=== PATIENT | female | born 1990 | race Hispanic/Latino ===

== ENCOUNTER 2016-12-08 17:44 | Emergency (ER) | payer OTHER ==
[~2016-12-08] VITALS: Ht 152.4 cm; Wt 97.5 kg
[~2016-12-08 17:44] MED LIST: CYCLOBENZAPRINE10 M1 PO; IBUPROFEN600 M1 PO; LEVAQUIN500 MG PO; LIORESAL 10MG T10 MG PO; LYSTEDA650 MG PO; MEDROL DOSEPAK1 PAC PO; MIRALAX17 GM PO; MOTRIN 600 MG600 MG PO; NOVAPLUS V0.09 MG/Ac INH; NUVARING1 ICR VG; PRENATAL1 TA2 PO; ROBITUSSIN W/CO10 ML PO; TESSALON PERLE100 MG PO; TRAMADOL50 MG PO
[2016-12-08 17:51] VITALS: BP 118/72
[2016-12-08 18:29] LABS: ABSOLUTE BASOPHIL COUNT 0 /CUMM (0.0-0.2); ABSOLUTE EOSINOPHIL COUNT 0.2 /CUMM (0.0-0.7); ABSOLUTE GRANULOCYTE CT 8.9 /CUMM (1.4-6.5); ABSOLUTE LYMPH COUNT 1.1 /CUMM (1.2-3.4); ABSOLUTE MONOCYTE COUNT 0.7 /CUMM (0.10-0.60); BASOPHIL % 0.3 % (0.0-2.0); GRANULOCYTE % 81.5 % (42.2-75.2); MEAN CORPUSCULAR HGB 31.2 PG (27.0-31.0); MEAN CORPUSCULAR HGB CONC 33.6 G/DL (33.0-37.0); MEAN CORPUSCULAR VOLUME 92.9 FL (81.0-99.0); MEAN PLATELET VOLUME 7.4 FL (7.4-10.4); PLATELET COUNT 321 /CUMM (130-400); RBC DISTRIBUTION WIDTH 13.8 % (11.5-14.5); RED BLOOD CELL CT 4.41 /CUMM (4.20-5.40); WHITE BLOOD CELL COUNT 10.9 /CUMM (4.8-10.8)
--- NOTE | 2016-12-08 18:34 | ED INFLUENZA/URI COMPLAINT ---
History of Present Illness General Chief Complaint: General Adult Stated Complaint: CHILLS, BODY ACHES Source: patient, old records Exam Limitations: no limitations Vital Signs & Intake/Output Vital Signs & Intake/Output ED Intake and Output 12/09 0000 12/08 1200 Intake Total Output Total Balance Patient 215 lb Weight Weight Reported by Patient Measurement Method Triage Note: PT TO ED FOR C/C OF WAKING UP WITH CHILLS, ACHING ALL OVER BODY. PT DOES HAVE ROGEL WITH MINIMAL BLURRY VISION. DENIES ABD PAIN, N, V, COUGH, SORE THROAT. PT TOOK MOTRIN AT HOME WITHOUT RELIEF. Triage Nurses Notes Reviewed? yes Onset: Abrupt Duration: day(s): (1), constant Timing: recent history Severity: mild, moderate Severity Numbers: 5 No Modifying Factors: none Associated Symptoms: muscle aches : No Patient currently breastfeeds: No HPI: 26-year-old female with no medical history presents to ER for evaluation complaining of generalized bodyaches, headache chills since this morning. No sick contacts no recent travel. She denies fever rhinorrhea congestion and ear pain sore throat chest pain abdominal pain nausea vomiting diarrhea. No urinary complaints no modifying factors or associated symptoms. She took Motrin earlier today without improvement in the (NEDA LACKEY,GINGER) Allergies Coded Allergies: milk (ABD PAIN/DISCOMFORT 12/09/16) Reconcile Medications Albuterol Sulfate (Proventil Hfa) 90 MCG HFA.AER.AD 2 PUF INH Q4 PRN wheezing Ergocalciferol (Vitamin D2) (Vitamin D2) 50,000 UNIT CAPSULE 1 CAP PO QTHURS SUPPLEMENT (Reported) Ibuprofen 600 MG TABLET 1 TAB PO TID PRN fever with food Ibuprofen 600 MG TABLET 1 TAB PO TID PRN PAIN with food (ARON GARCÍA,YENNIFER Cruz) Past History Travel History Traveled to [place] past 21 day No Medical History Any Pertinent Medical History? 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 No (GINGER GARCIA) Review of Systems Review of Systems Constitutional: Reports: see HPI. All Other Systems: Reviewed and Negative Comments Review of systems: See HPI, All other systems negative. Constitutional, chills fever, no malaise HEENT: No visual changes no sore throat no congestion, no ear pain Cardiovascular: No chest pain , no palpitation , Skin: no rashes, no change in skin Respiratory: No dyspnea no cough no sputum no hemoptysis GI: No nausea no vomiting, no diarrhea, no bloating/constipation : No dysuria No hematuria, no frequency, no discharge Muscle skeletal: No joint pain, no joint swelling, no back pain, no neck pain, Neurologic: No numbness no confusion, no headache Psych: No stress no depression,. Heme/endocrine: No bruising no bleeding Immunology: No lymphadenopathy (GINGER GARCIA) Physical Exam Physical Exam General Appearance: well developed/nourished, alert, awake Ears, Nose, Throat: normal ENT inspection Comments: Well-developed well-nourished patient in no apparent distress. Head/Face: Atraumatic, no maxillary/frontal sinus tenderness, no facial swelling Eyes: PERRL, EOMI, no conjunctival injection. No nystagmus Ear:External auditory canal and Tympanic membranes clear, no erythema, no FB. Nose: atraumatic.Normal inspection: No bleeding, no septal hematoma Throat: Moist mucous membranes.Pharynx normal. No pharyngeal erythema/exudate seen. No stridor/drooling or assymetry. No swelling or edema. Neck: Supple, no lymphadenopathy, FROM Back: FROM Cardiovascular: Regular rate and rhythms no murmurs rubs or gallops, Respiratory: Chest nontender.There were no bony deformities, no asymmetry. No respiratory distress. Patient speaking in full complete sentences. Breath sounds clear to auscultation bilaterally: NO W/R/R Extremities: full range of motion Neuro: awake, alert, and oriented to person, place and time. There were no obvious focal neurologic abnormalities. Skin: Warm & dry;No appreciable rash on exposed skin Psych: Mood affect normal, normal memory normal judgment. Core Measures Severe Sepsis Present: No Septic Shock Present: No (GINGER GARCIA) Progress Differential Diagnosis: influenza, otitis, pneumonia, pharyngitis, sinusitis, uti,pna, bronchitis Plan of Care: Orders Procedure Date/time Status URINE 12/08 1756 Complete URINALYSIS 12/08 1756 Complete COMPREHENSIVE METABOLIC PANEL 12/08 1756 Complete CBC WITHOUT DIFFERENTIAL 12/08 1756 Complete Laboratory Tests 12/08/161809: Urinalysis LIGHT H, Urine Color YEL, Urine Clarity HAZY H, Urine pH 6.0, Ur Specific [place] 1.025, Urine Protein TRACE H, Urine Ketones NEG, Urine Nitrite NEG, Urine Bilirubin NEG, Urine Urobilinogen 0.2, Ur Leukocyte Esterase TRACE H , Ur Microscopic SEDIMENT EXAMINED, Urine RBC 1-3, Urine WBC 3-5 H, Ur Epithelial Cells MANY H, Urine Bacteria MOD H, Urine Mucus MOD H, Urine Hemoglobin LARGE H, Urine Glucose NEG, Urine Test NEGATIVE 12/08/161804: Anion Gap 9, Estimated GFR > 60, BUN/Creatinine Ratio 17.5, Glucose 86, Calcium 8.7, Total Bilirubin 0.5, AST 18, ALT 35, Alkaline Phosphatase 86, Total Protein 6.5, Albumin 3.8, Globulin 2.7, Albumin/Globulin Ratio 1.4, CBC w Diff NO MAN DIFF REQ, RBC 4.41, MCV 92.9, MCH 31.2 H, RDW 13.8, MPV 7.4, Gran % 81.5 H, Lymphocytes % 9.8 L, Monocytes % 6.4, Eosinophils % 2.0, Basophils % 0.3, Absolute Granulocytes 8.9 H, Absolute Lymphocytes 1.1 L, Absolute Monocytes 0.7 H, Absolute Eosinophils 0.2, Absolute Basophils 0, PUBS MCHC 33.6 Patient clinically appears well and nontoxic appearing afebrile discussed with the plan of care I discussed with the patient at length all of their results. I had an extensive conversation regarding need for close follow up with their primary care physician this week as well as return precautions. I answered all of their questions, they feel comfortable with the plan and follow-up care. (GINGER GARCIA) Initial ED EKG: none (GINGER GARCIA) Departure Departure Time of Disposition: 1899 Disposition: HOME OR SELF CARE Condition: Stable Clinical Impression Primary Impression: Viral syndrome Referrals: UNKNOWN (PCP) Additional Instructions: Tylenol or Motrin every 4-6 hours and plenty of fluids rest follow-up with your primary care physician this week. Return to ER anytime sooner with any concerns. Departure Forms: Customer Survey General Discharge Information (NEDA LACKEY,GINGER) PA/LENS POLISHER Co-Sign Statement Statement: ED Attending supervision documentation- [] I saw and evaluated the patient. I have also reviewed all the pertinent lab results and diagnostic results. I agree with the findings and the plan of care as documented in the PA's/LENS POLISHER's documentation. [X] I have reviewed the ED Record and agree with the PA's/LENS POLISHER's documentation. [] Additions or exceptions (if any) to the PAs/LENS POLISHER's note and plan are summarized below: [] (ARON GARCÍA,YENNIFER Cruz)
[2016-12-08] MEDS ORDERED: VITAMIN D250000 UNIT PO (18:40)
[2016-12-09] MEDS ORDERED: PROVENTIL HFA6.7 GM INH (18:41)
[2016-12-09] MEDS ORDERED: IBUPROFEN600 M1 PO (18:41)
== END 2016-12-08 19:11 ==
LOC: ERH 17:44
PROVIDERS: Emergency Medicine
DX: B34.9 Viral infection, unspecified (principal)
CPT/HCPCS: 81001; 81025

== ENCOUNTER 2016-12-09 13:49 | Emergency (ER) | payer OTHER ==
[~2016-12-09 13:49] MED LIST changes: +VITAMIN D250000 UNIT PO
[2016-12-09 14:21] VITALS: BP 106/71
[2016-12-09 15:01] LABS: ABSOLUTE BASOPHIL COUNT 0 /CUMM (0.0-0.2); ABSOLUTE EOSINOPHIL COUNT 0 /CUMM (0.0-0.7); ABSOLUTE GRANULOCYTE CT 8.8 /CUMM (1.4-6.5); ABSOLUTE LYMPH COUNT 0.8 /CUMM (1.2-3.4); ABSOLUTE MONOCYTE COUNT 0.7 /CUMM (0.10-0.60); BASOPHIL % 0 % (0.0-2.0); EOSINOPHIL % 0.2 % (0-5); GRANULOCYTE % 85.6 % (42.2-75.2); HEMATOCRIT 41.9 % (37-47); MEAN CORPUSCULAR HGB 31.3 PG (27.0-31.0); MEAN CORPUSCULAR HGB CONC 33.6 G/DL (33.0-37.0); MEAN CORPUSCULAR VOLUME 93.2 FL (81.0-99.0); MEAN PLATELET VOLUME 7.4 FL (7.4-10.4); PLATELET COUNT 322 /CUMM (130-400); RBC DISTRIBUTION WIDTH 13.9 % (11.5-14.5); WHITE BLOOD CELL COUNT 10.3 /CUMM (4.8-10.8)
--- NOTE | 2016-12-09 16:58 | ED GENERAL ADULT ---
History of Present Illness General Chief Complaint: General Adult Stated Complaint: HERE YEST WITH VIRUS, FELLS WORSE TODAY Source: patient Exam Limitations: no limitations Vital Signs & Intake/Output Vital Signs & Intake/Output Vital Signs Date Time Temp Pulse Resp B/P B/P Pulse O2 O2 Flow FiO2 Mean Ox Delivery Rate 12/09 1710 98.9 12/09 1710 96 12/09 1709 98.9 12/09 1700 97 12/09 1427 101.5 12/09 1421 101.5 134 16 106/71 98 Room Air Room Air Allergies Coded Allergies: milk (ABD PAIN/DISCOMFORT 12/09/16) Triage Note: PT TO TRIAGE WITYH FEVERS, MUSCLES ACHES AND TIREDNESS FOR 2 DAYS. PT WAS DIAGNOSED WITH VIRAL SYNDROME LAST NIGHT AND D/C. Triage Nurses Notes Reviewed? yes : No Patient currently breastfeeds: No HPI: 26-year-old female with history of asthma presenting with fevers (Tmax 101F), myalgias, malaise since yesterday. Denies URI, cough, sputum, abdominal pain, nausea, vomiting, diarrhea, dysuria, vaginal discharge. Was seen in the ED yesterday with negative workup and diagnosed with viral syndrome. Instructed to use ibuprofen as needed for fevers and myalgias, and to maintain adequate fluid intake. Patient reports fever returns within 3 hours after taking ibuprofen. Also states she has been unable to drink with fluids due to decreased by mouth intake. (PATI BOYKIN,WAYNE) Reconcile Medications Albuterol Sulfate (Proventil Hfa) 90 MCG HFA.AER.AD 2 PUF INH Q4 PRN wheezing Ergocalciferol (Vitamin D2) (Vitamin D2) 50,000 UNIT CAPSULE 1 CAP PO QTHURS SUPPLEMENT (Reported) Ibuprofen 600 MG TABLET 1 TAB PO TID PRN fever with food Ibuprofen 600 MG TABLET 1 TAB PO TID PRN PAIN with food (BLANCA GARCÍA,HERLINDA) Past History Travel History Traveled to [place] past 21 day No Medical History Any Pertinent Medical History? 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 No (PATI BOYKIN,WAYNE) Review of Systems Review of Systems Constitutional: Reports: chills, fever, malaise. Denies: weakness. EENTM: Denies: ear pain, nasal congestion, throat pain. Respiratory: Reports: wheezing. Denies: cough, sputum production. Cardiovascular: Denies: chest pain, palpitations. GI: Denies: abdominal pain, diarrhea, nausea, vomiting. Genitourinary: Denies: discharge, dysuria. Musculoskeletal: Reports: muscle pain. Denies: joint pain. Skin: Denies: rash. (PATI BOYKIN,WAYNE) Physical Exam Physical Exam General Appearance: well developed/nourished, no apparent distress, comfortable Head: atraumatic Ears, Nose, Throat: normal ENT inspection Neck: normal inspection, supple, no LAD Respiratory: diffsue wheezes bilaterally throughout all lung ramirez. Cardiovascular: regular rate/rhythm Gastrointestinal: soft, non-tender Skin: intact Core Measures ACS in differential dx? No CVA/TIA Diagnosis: No Severe Sepsis Present: No Septic Shock Present: No (PATI BOYKIN,WAYNE) Progress Differential Diagnoses I considered the following diagnoses in my evaluation of the patient: [Viral syndrome versus pneumonia versus UTI versus fever of unknown origin] Plan of Care: Orders Procedure Date/time Status URINE 12/09 143 Complete URINALYSIS 12/09 143 Complete COMPREHENSIVE METABOLIC PANEL 12/09 143 Complete CBC WITHOUT DIFFERENTIAL 12/09 143 Complete Laboratory Tests 12/09/16 1457: Urine Color YEL, Urine Clarity HAZY H, Urine pH 6.5, Ur Specific [place] 1.020, Urine Protein TRACE H, Urine Ketones NEG, Urine Nitrite NEG, Urine Bilirubin NEG, Urine Urobilinogen 0.2, Ur Leukocyte Esterase NEG, Ur Microscopic SEDIMENT EXAMINED, Urine RBC 1-3, Urine WBC 1-3 H, Ur Epithelial Cells MOD H, Urine Bacteria FEW H, Urine Mucus FEW, Urine Hemoglobin SMALL H, Urine Glucose NEG, Urine Test NEGATIVE 12/09/16 1434: Anion Gap 10, Estimated GFR > 60, BUN/Creatinine Ratio 15.0, Glucose 105 H, Calcium 8.8, Total Bilirubin 0.4, AST 17, ALT 32, Alkaline Phosphatase 76, Total Protein 6.3, Albumin 3.5, Globulin 2.8, Albumin/Globulin Ratio 1.3, CBC w Diff MAN DIFF ORDERED, RBC 4.50, MCV 93.2, MCH 31.3 H, RDW 13.9, MPV 7.4, Gran % 85.6 H, Lymphocytes % 7.8 L, Monocytes % 6.4, Eosinophils % 0.2, Basophils % 0 L, Absolute Granulocytes 8.8 H, Segmented Neutrophils 79 H, Band Neutrophils 5, Absolute Lymphocytes 0.8 L, Lymphocytes 6 L, Monocytes 9, Absolute Monocytes 0.7 H, Eosinophils 1, Absolute Eosinophils 0, Absolute Basophils 0, Platelet Estimate VERIFIED BY SMEAR, Normocytic RBCs VERIFIED, Normochromic RBCs VERIFIED, PUBS MCHC 33.6 Labs and urine unremarkable. Chest x-ray negative for pneumonia. Wheezing resolved after albuterol nebs. Afebrile after ibuprofen. Will discharge home with education on symptomatic care, Motrin for fevers, fluid hydration, and prescription for albuterol inhaler as needed for wheezing. (PATI BOYKIN,WAYNE) Initial ED EKG: none (WAYNE KRUEGER PA-C) Departure Departure Disposition: HOME OR SELF CARE Condition: Stable Clinical Impression Primary Impression: Fever Secondary Impressions: Myalgia Referrals: UNKNOWN (PCP) Additional Instructions: Use albuterol inhaler every 4-6 hours as needed for wheezing. Use ibuprofen as needed for fevers and muscle aches. Maintain adequate fluid intake. Follow-up with your primary care provider in the next 2 days for reevaluation. Return to the ED for any new or worsening symptoms. Departure Forms: Customer Survey General Discharge Information (WAYNE KRUEGER PA-C) Departure Prescriptions: Current Visit Scripts Albuterol Sulfate (Proventil Hfa) 2 PUF INH Q4 PRN wheezing #1 INHAL Ibuprofen 1 TAB PO TID PRN fever #30 TAB with food PA/GOLF COURSE SUPERINTENDENT Co-Sign Statement Statement: ED Attending supervision documentation- [] I saw and evaluated the patient. I have also reviewed all the pertinent lab results and diagnostic results. I agree with the findings and the plan of care as documented in the PA's/GOLF COURSE SUPERINTENDENT's documentation. [X] I have reviewed the ED Record and agree with the PA's/GOLF COURSE SUPERINTENDENT's documentation. [] Additions or exceptions (if any) to the PAs/GOLF COURSE SUPERINTENDENT's note and plan are summarized below: [] (BLANCA GARCÍA,HERLINDA) Critical Care Note Critical Care Note Critical Care Time: non-applicable (PATI BOYKIN,WAYNE)
--- NOTE | 2016-12-09 18:17 | RADIOLOGY REPORT ---
EXAMINATION: XR CHEST CLINICAL INFORMATION: Fever of unknown origin. COMPARISON: Chest x-ray 12/28/2015 TECHNIQUE: 2 views of the chest were obtained. FINDINGS: No significant abnormality is noted involving the heart, lungs, mediastinum, bony thorax or soft tissues. IMPRESSION: Unremarkable examination.
[2016-12-09] MEDS ORDERED: IBUPROFEN600 M1 PO (18:41)
[2016-12-09] MEDS ORDERED: PROVENTIL HFA6.7 GM INH (18:41)
== END 2016-12-09 18:40 ==
LOC: ERH 13:49
PROVIDERS: Emergency Medicine
DX: M79.1 Myalgia (principal); R50.9 Fever, unspecified
CPT/HCPCS: 1263; 81001; 81025

== ENCOUNTER 2018-04-09 08:51 | Emergency (ER) | payer OTHER ==
[~2018-04-09] VITALS: Ht 152.4 cm; Wt 109.3 kg
[~2018-04-09 08:51] MED LIST changes: +IBUPROFEN800 M1 PO; +KETOROLAC TROME10 M1 PO; +PROVENTIL HFA6.7 GM INH; +ZOFRAN4 M2 PO
[2018-04-09 09:19] VITALS: BP 132/95
== END 2018-04-09 09:37 | disposition admitted as inpatient to this hospital (09) ==
LOC: ERH 08:51
DX: F41.9 Anxiety disorder, unspecified (principal)
CPT/HCPCS: 80307; 81001; 81025; 99281